=== PATIENT | male | born 1955 | race Caucasian/White ===

== ENCOUNTER → 2025-02-07 09:13 | Outpatient (REF) | payer MEDICARE, OTHER, SELFPAY ==
[2025-02-07 09:46] VITALS: BP 132/91; BP_SYST 58; BMI 29.4
== END ==
LOC: RADI 09:13
PROVIDERS: ATTENDING PHYSICIAN Internal Medicine Endocrinology, Diabetes & Metabolism; FAMILY PHYSICIAN Internal Medicine
DX: E04.2 Nontoxic multinodular goiter (principal)
CPT/HCPCS: 88173; 10005; 10006